=== PATIENT | male | born 1990 | race Caucasian/White ===

== ENCOUNTER 2020-11-06 11:43 | Emergency (ER) | payer SELFPAY ==
[~2020-11-06] VITALS: Ht 182.9 cm; Wt 80.0 kg
[2020-11-06 11:52] VITALS: BP 165/62
[2020-11-06] MEDS ORDERED: LIDOCAINE 2%, 20ML SQ ONE (12:00)
--- NOTE | 2020-11-06 12:50 | NUR ---
[employer]: PT AMBULATORY TO ROOM FROM LOBBY
[2020-11-06] MEDS ORDERED: LIDOCAINE-MPF 2% ,5ML ONE (12:58)
--- NOTE | 2020-11-06 13:44 | NUR ---
AWAITING PROVIDER EVAL.
--- NOTE | 2020-11-06 13:53 | NUR ---
PROVIDER AT BEDSIDE, POC DISCUSSED AND PT WOUND NUMBED FOR CLEANING
--- NOTE | 2020-11-06 14:28 | NUR ---
Patient/Caregiver given discharge instructions and they have confirmed that they understand the instructions. Patient ambulatory with steady gait.
== END 2020-11-06 14:36 | disposition home or self-care (01) ==
LOC: ED 14:25
DX: S61.432A Puncture wound without foreign body of left hand, initial encounter (principal); X58.XXXA Exposure to other specified factors, initial encounter; Y93.89 Activity, other specified; Y92.89 Other specified places as the place of occurrence of the external cause; Y99.8 Other external cause status
CPT/HCPCS: 12041; 73130; 99284; J3490